=== PATIENT | female | born 1965 | race Caucasian/White ===

== ENCOUNTER 2024-03-05 15:53 | Outpatient (CLI) | payer BC | END 2024-03-05 15:54 | disposition home or self-care (01) | LOC: SCSRAD 15:53 | PROVIDERS: ATTEND Family Medicine | DX: S82.892D Other fracture of left lower leg, subsequent encounter for closed fracture with routine healing (principal); S82.832D Other fracture of upper and lower end of left fibula, subsequent encounter for closed fracture with routine healing; M89.9 Disorder of bone, unspecified ==